=== PATIENT | male | born 1965 ===

== ENCOUNTER 2017-12-22 18:43 | Emergency (ER) | payer BC ==
--- NOTE | 2017-12-22 19:33 | UC ---
Skin Complaint HPI - HPI Summary HPI Summary: The patient is a 52-year-old male with the onset of right ear redness that started today. He has minimal discomfort of his right pinna. He was recently treated for a sinus infection with a cephalosporin. During the exam of the patient he started developing right sided neck pruritus and hives. He denies any chest pain or shortness of breath. - History of Current Complaint Chief Complaint: UCEar Time Seen by Provider: 12/22/17 18:58 Stated Complaint: EAR COMPLAINT Hx Obtained From: Patient Onset/Duration: Gradual Onset, Lasting Hours Timing: Constant Onset Severity: Mild Current Severity: Mild Pain Intensity: 2 Pain Scale Used: 0-10 Numeric Location: Discrete, Ear (Right) Character: Pruritus, Redness Aggravating Factor(s): Nothing Alleviating Factor(s): Nothing - Allergy/Home Medications Allergies/Adverse Reactions: Allergies Allergy/AdvReac Type Severity Reaction Status Date / Time amoxicillin [From Augmentin] Allergy GI Upset Verified 12/22/17 18:55 clavulanic acid Allergy GI Upset Verified 12/22/17 18:55 [From Augmentin] Home Medications: Home Medications Cefdinir [Cefdinir 300 MG CAP] 300 mg PO BID 12/22/17 [History Confirmed ] Ibuprofen 400 mg PO 12/22/17 [History] Review of Systems Constitutional: Negative Skin: Rash Eyes: Negative ENT: Negative Respiratory: Negative Cardiovascular: Negative Gastrointestinal: Negative Genitourinary: Negative Motor: Negative Neurovascular: Negative Musculoskeletal: Negative Neurological: Negative Psychological: Negative All Other Systems Reviewed And Are Negative: Yes PMH/Surg Hx/FS Hx/Imm Hx Previously Healthy: Yes Cardiovascular History: Hypertension - white coat Psychological History: Anxiety - Surgical History Surgical History: Yes Surgery Procedure, Year, and Place: vein surgeries - Family History Known Family History: Positive: Hypertension - Social History Alcohol Use: Daily Substance Use Type: None Smoking Status (MU): Never Smoked Tobacco Physical Exam Triage Information Reviewed: Yes Appearance: Well-Appearing, No Pain Distress, Well-Nourished Vital Signs: Initial Vital Signs Temp 98.2 F 12/22/17 18:50 Pulse 66 12/22/17 18:50 Resp 18 12/22/17 18:50 BP 147/92 12/22/17 18:50 Pulse Ox 99 12/22/17 18:50 Vital Signs Reviewed: Yes Eyes: Positive: Conjunctiva Clear ENT: Positive: Hearing grossly normal, Pharynx normal, Nasal congestion, TMs normal, Uvula midline, Other - right pinna red/not swollen or tender, right EAC normal. no tragal tenderness or pain with movement of pinna. Negative: Nasal drainage, TM bulging, TM dull, TM red, Tonsillar swelling, Tonsillar exudate, Trismus, Muffled voice, Hoarse voice Dental Exam: Normal Neck: Positive: Supple, Nontender, No Lymphadenopathy Respiratory: Positive: Lungs clear, Normal breath sounds, No respiratory distress, No accessory muscle use Cardiovascular: Positive: RRR, No Murmur Musculoskeletal: Positive: Strength Intact, ROM Intact, No Edema Neurological: Positive: Alert Psychological Exam: Normal Skin Exam: Other - hives right lat neck, no vesicles Course/Dx - Diagnoses Provider Diagnoses: acute urticaria Discharge - Sign-Out/Discharge Documenting (check all that apply): Patient Departure All imaging exams completed and their final reports reviewed: No Studies - Discharge Plan Condition: Stable Disposition: HOME Prescriptions: predniSONE [Deltasone 20 MG TAB] 40 mg PO DAILY #8 tab Patient Education Materials: Urticaria (ED) Referrals: No Primary Care Phys,NOPCP [Primary Care Provider] - Additional Instructions: Since arriving here your area of redness has spread to your right neck and it now looks as though your are starting to develop hives This may be due to an allergy take benadryl when you get home recheck for new or worsening symptoms - Billing Disposition and Condition Condition: STABLE Disposition: Home
[2017-12-22] MEDS ORDERED: predniSONE TAB* 20 MG PO ONE (19:41)
== END 2017-12-22 19:41 | disposition home or self-care (01) ==
LOC: UCEAST 18:43
DX: L50.9 Urticaria, unspecified (principal); Z88.1 Allergy status to other antibiotic agents; Z88.0 Allergy status to penicillin
CPT/HCPCS: 99202; G0463